=== PATIENT | female | born 1955 | race Caucasian/White ===

== ENCOUNTER 2020-11-09 15:47 | Emergency (ER) | payer MEDICARE, OTHER ==
[~2020-11-09] VITALS: Ht 165.1 cm; Wt 89.4 kg
[~2020-11-09 15:47] MED LIST: AMIT50 PO; ATEN25 PO; ATOR40TA PO; CENTRUM MULTIV1 EACH PO; CYCL10; METO25 PO; Percocet 5-3251 EACH PO; SERT100 PO; SERT50 PO; TERB250 PO; TRAM50 PO
== END 2020-11-09 20:18 | disposition left against medical advice (07) ==
LOC: ER 15:47
DX: M25.569 Pain in unspecified knee (principal); Z53.21 Procedure and treatment not carried out due to patient leaving prior to being seen by health care provider; W18.30XA Fall on same level, unspecified, initial encounter
CPT/HCPCS: 73564; 99283-25

== ENCOUNTER 2020-11-10 09:58 | Emergency (ER) | payer MEDICARE, OTHER ==
[~2020-11-10] VITALS: Ht 165.1 cm; Wt 89.4 kg
== END 2020-11-10 11:17 | disposition home or self-care (01) ==
LOC: ER 09:58
DX: S83.92XA Sprain of unspecified site of left knee, initial encounter (principal); I10 Essential (primary) hypertension; E03.9 Hypothyroidism, unspecified; Z79.899 Other long term (current) drug therapy; Z88.0 Allergy status to penicillin; Z88.2 Allergy status to sulfonamides; Z88.5 Allergy status to narcotic agent; Z88.1 Allergy status to other antibiotic agents; Z88.8 Allergy status to other drugs, medicaments and biological substances; W10.9XXA Fall (on) (from) unspecified stairs and steps, initial encounter
CPT/HCPCS: 99283

== ENCOUNTER 2023-05-06 20:14 | Emergency (ER) | payer MEDICARE, OTHER ==
[~2023-05-06] VITALS: Ht 160 cm; Wt 86.2 kg
[2023-05-06 20:34] VITALS: BP 160/93
[2023-05-06] MEDS ORDERED: MONDOXYNE NL100 MG PO (22:09)
[2023-05-06] MEDS ORDERED: CEPH500 PO (22:09)
== END 2023-05-06 22:29 | disposition home or self-care (01) ==
LOC: ER 20:14
DX: L02.611 Cutaneous abscess of right foot (principal); L03.031 Cellulitis of right toe; G35 Multiple sclerosis; Z88.0 Allergy status to penicillin; Z88.1 Allergy status to other antibiotic agents; Z88.2 Allergy status to sulfonamides; Z88.5 Allergy status to narcotic agent; Z88.6 Allergy status to analgesic agent; Z88.8 Allergy status to other drugs, medicaments and biological substances; Z79.899 Other long term (current) drug therapy
CPT/HCPCS: 10060; 73630; 99283-25; A9270